=== PATIENT | female | born 1955 | race Caucasian/White ===

== ENCOUNTER 2021-07-28 09:44 | Outpatient (CLI) | payer BC, SELFPAY ==
--- NOTE | 2021-07-28 09:56 | MM_ITS ---
WS: [id number] BILATERAL SCREENING DIGITAL BREAST TOMOSYNTHESIS MAMMOGRAM WITH CAD HISTORY: SCREENING COMPARISON: 06/12/2016 and 06/04/2016 Bilateral CC and MLO views with tomosynthesis and synthetic mammography submitted. Computer aided det ection analyzed. Breast composition: There are scattered areas of fibroglandular density. No suspicious masses, microc alcifications or architectural distortion. Well-circumscribed nodule RIGHT breast near 9:00 measures 11 x 12 mm. There are now central coarse calcifications. Consistent with a degenerating fibroadenoma. Benign calcifications in the LEFT breast. MM/[place] [id number] IMPRESSION: BI-RADS: 2-Benign FOLLOW UP: 1 Year Follow-up
== END 2021-07-28 09:45 | disposition home or self-care (01) ==
PROVIDERS: Visit Provider Family Medicine
DX: Z12.31 Encounter for screening mammogram for malignant neoplasm of breast (principal)
CPT/HCPCS: 77063; 77067

== ENCOUNTER 2021-10-17 10:18 | Outpatient (CLI) | payer BC, SELFPAY ==
--- NOTE | 2021-10-17 10:15 | USCV_ITS ---
Nathaly Rodgers Age: 66 Gender: F : 1955 Exam Date: 10/17/2021 10:32 Ordering Phys: Chi Main M.D ([email or web address]) Technologist: Carlos Hernandez [place] [facility] [place]: occlusion and stenosis of bilateral carotid arteries Risk Factors: Previous Vascular Surgery: Left subclavian stent Right Brachial BP: / Left Brachial BP: / Right Left Velocity (cm/s) Spectral Plaque Velocity (cm/s) Spectral Plaque Syst/Diast Broadening Syst/Diast Broadening 102.50/23.20 Prox CCA 69.20 / 23.10 53.80/ 16.20 Mid CCA 76.90 / 22.20 56.50/ 15.10 Distal CCA 70.10 / 23.90 86.20/ 24.90 Prox ICA 100.00/ 21.40 108.00/34.20 Mid ICA 95.70 / 28.20 64.50/ 19.40 Distal ICA 94.00 / 29.90 106.40 ECA 88.00 2.01 ICA/CCA 1.24 Antegrade Vertebral Antegrade 56.70/ 19.40 cm/s 59.00/ 10.30 cm/s Tri Subclavian Bi 109.4 96.40 0 CONCLUSIONS Right ICA stenosis <50%. Mild atheromatous plaque right carotid bulb/ICA. Left ICA stenosis <50%. Mild atheromatous plaque left carotid bulb/ICA. Normal antegrade Doppler flow noted in the right vertebral artery. Normal antegrade Doppler flow noted in the left vertebral artery. Left subclavian stent appears patent. Jose Levin MD (Electronically Signed) Final Date: 19 October 2021 15:44 S
== END 2021-10-17 10:19 | disposition home or self-care (01) ==
PROVIDERS: PCP Family Medicine; Visit Provider Internal Medicine
DX: I65.23 Occlusion and stenosis of bilateral carotid arteries (principal)
CPT/HCPCS: 93880

== ENCOUNTER → 2022-01-28 11:20 | Outpatient (BNVA) | payer MEDICARE, SELFPAY | PROVIDERS: PCP Family Medicine; Visit Provider Family Medicine | DX: R73.09 Other abnormal glucose (principal); Z51.81 Encounter for therapeutic drug level monitoring | CPT/HCPCS: 80053; 83036; 85025 ==

== ENCOUNTER → 2022-03-25 12:06 | Outpatient (BNVA) | payer MEDICARE, SELFPAY | PROVIDERS: PCP Family Medicine; Visit Provider Family Medicine | DX: R74.8 Abnormal levels of other serum enzymes (principal) | CPT/HCPCS: 86705; 86706; 86709; 86803; 87340 ==

== ENCOUNTER → 2022-06-01 13:08 | Outpatient (BNVA) | payer MEDICARE, SELFPAY | PROVIDERS: PCP Family Medicine; Visit Provider Internal Medicine | DX: I73.9 Peripheral vascular disease, unspecified (principal); I10 Essential (primary) hypertension; E78.00 Pure hypercholesterolemia, unspecified; Z87.891 Personal history of nicotine dependence; Z79.82 Long term (current) use of aspirin | CPT/HCPCS: 99214 ==

== ENCOUNTER 2022-06-26 12:04 | Emergency (ER) | payer MEDICARE, SELFPAY ==
[2022-06-26 12:27] VITALS: BP 184/92; PULSE 74; RESP 16; TEMP 36.2; O2SAT 94; BMI 32.1
--- NOTE | 2022-06-26 12:32 | XR_ITS ---
WS: [id number] EXAMINATION: XR knee RT 3V* [id number] REASON FOR EXAM: pain COMPARISON: None available. ORDER DATE: 06/26/2022 12:46 PM FINDINGS: There are marginal osteophytes associated with the tibial spines, patella and other articular margins with medial and patellofemoral compartment narrowing. There is no sign of any acute fracture or disl ocation. XR/XR knee RT 3V* [id number] IMPRESSION: MEDIAL AND PATELLOFEMORAL COMPARTMENT NARROWING WITH OSTEOARTHRITIC CHANGES.
--- NOTE | 2022-06-26 12:42 | ED_ITS ---
HPI - Fall General: Chief Complaint: Fall Stated Complaint: fall Time Seen by Provider: 06/26/22 12:26 Source: patient Mode of arrival: ambulatory History of Present Illness: 67-year-old female presents emergency complaining of falling about 3 hours ago she stumbled on a sidewalk on a transition point from the concrete to the asphalt of the parking lot she fell she complaining of right knee pain and abrasion the nurses note had made a comment about she would hurt her right ankle when I went and seen the patient she told me she had no problem with the ankle but she is had right knee pain as well as right rib pain. Painful to take a deep breath. She not strike her head she did not lose consciousness. Denies any other injuries. MD complaint: fall Onset (ago): hour(s) (3) Fall from: standing Fall witnessed: yes, by family Place fall occurred: home Loss of consciousness: None Prolonged down time: no Symptoms prior to fall: none Context: tripped/slipped Location of injury: chest Location of injury - extremities: Right: knee Associated symptoms-after fall: Denies abdominal pain, chest pain, confusion, difficulty walking, headache(s), hematuria, lightheadedness, neck pain, numbness, short of breath, vertigo or weakness Review of Systems Const: Denies: fever(s), chills, body aches, change in appetite, fatigue or malaise ENMT: Denies: throat pain, ear or mastoid pain, nasal discharge or nasal congestion Card: Denies: chest pain or lightheadedness Resp: Denies: dyspnea, productive cough or non-productive cough GI: Denies: abdominal pain : Denies: hematuria Musc: Denies: neck pain Skin/Breast: Denies: rash or pruritus Neuro: Denies: headache(s), difficulty walking, vertigo or confusion PFSH ED PFSH: Medical History HTN (hypertension) Hypercholesterolemia Family History Mother H/O heart bypass surgery PAD (peripheral artery disease) Social History Smoking and tobacco status: former smoker Quit status (tobacco): has quit using tobacco Year quit tobacco: Mar 2022 Alcohol intake: never Physical Exam Const: GENERAL APPEARANCE: cooperative and comfortable ORIENTATION/CONSCIOUSNESS: Yes awake, Yes oriented to person, Yes oriented to place and Yes oriented to time HENMT: COMMON NORMALS: normocephalic, atraumatic and hearing grossly normal bilaterally HEAD & SCALP: normocephalic and atraumatic Resp: COMMON NORMALS: normal respiratory effort, No retractions, No use of accessory muscles and clear to auscultation bilaterally AUSCULTATION: clear to auscultation bilaterally Cardio: COMMON NORMALS: regular rate, regular rhythm and No murmurs present (Cardio) RATE: regular rate RHYTHM: regular rhythm GI: COMMON NORMALS: Soft to palpation and No hepatosplenomegaly present AUSCULTATION: Yes normoactive bowel sounds PALPATION: Yes Soft to palpation, No Tenderness to palpation present (GI), No Guarding due to palpation present (GI) and Yes No hepatosplenomegaly present Extremity: COMMON NORMALS: normal to inspection, capillary refill normal, no clubbing, cyanosis or edema, no calf tenderness and no pedal edema Neuro: SENSORIUM/ORIENTATION: Yes oriented to person, Yes oriented to place and Yes oriented to time Skin: COMMON NORMALS: no rashes or lesions noted GENERAL SKIN EXAM: no rashes or lesions noted OTHER: Superficial abrasion right knee anterior lateral Course Vital Signs: Vital signs: Vital Signs Temperature 97.1 F L 06/26/22 12:27 Pulse Rate 64 06/26/22 15:01 Respiratory Rate 16 06/26/22 12:27 Blood Pressure 184/92 06/26/22 12:27 Pulse Oximetry 93 06/26/22 15:01 Oxygen Delivery Me thod Room Air 06/26/22 12:27 MDM - Fall Medical Decision Making Imaging shows no acute fractures on the knee or ribs. Discharge home with anti- inflammatories ice. Recommend nonweightbearing until knee is improving if it does not improve follow-up with primary care for advanced imaging. Medical Records I reviewed the patient's medical records. Lab Data I reviewed the patient's lab results. Radiology Impressions Knee X-Ray 06/26/22 12:32 IMPRESSION: MEDIAL AND PATELLOFEMORAL COMPARTMENT NARROWING WITH OSTEOARTHRITIC CHANGES. Ribs X-Ray 06/26/22 12:42 IMPRESSION: 1. No rib fracture identified. Follow-up as clinically indicated. 2. No acute findings in the chest. Discharge Plan Discharge Patient Disposition: Home Clinical Impression: Fall, Acute knee pain Condition: Stable Prescriptions: New diclofenac sodium 75 mg tablet,delayed release (DR/EC) 75 mg PO Q12H PRN (Reason: pain) Qty: 20 0RF No Action albuterol sulfate [ProAir HFA] 90 mcg/actuation HFA aerosol inhaler 2 puff inhalation Q6H PRN (Reason: Shortness Of Breath) Aspir-81 81 mg Tablet,Delayed Release (Dr/Ec) 81 mg PO QAM Tylenol Ex Str Rapid Release 500 mg Tablet 500 mg PO Q6H PRN (Reason: Pain) vitamin B complex Tablet 1 tab PO QAM atorvastatin 20 mg tablet 20 mg PO BEDTIME hydrochlorothiazide 25 mg tablet 25 mg PO QAM Discharge Orders: Discharge ED (Routine); Ordered 06/26/22 Ordered By: Rayshawn Quick Referrals: Umer Burr MD [Primary Care Provider] - Discharge Diet: Usual diet Discharge Activity: Resume usual activity Patient Instructions: Opioid Safety, Pain Management Activity Restrictions/Additional Instructions: You are seen after a fall today. Your x-rays were negative of the ribs and of the right knee. You were given an updated tetanus for the abrasion on your right knee. Recommend applying [id number] topical antibiotic ointment to that use of diclofenac as needed. Coding Level of Care Code ED Forensic Dna Analyst for Pramod Myers
--- NOTE | 2022-06-26 12:42 | XRR_ITS ---
PROCEDURE INFORMATION: Exam: XR Right Ribs with PA Chest Exam date and time: 06/26/2022 12:55 PM Age: 67 years old Clinical indication: Injury or trauma; Fall; Rib area; Blunt trauma (contusions or hematomas); Additional info: Fall, R rib pain TECHNIQUE: Imaging protocol: Radiologic exam of the right ribs with PA chest. Views: 3 views COMPARISON: No relevant prior studies available. FINDINGS: Lungs: Unremarkable. No consolidation. 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 Minimal left basilar scarring or atelectasis. Pleural spaces: Unremarkable. No pleural effusion. No pneumothorax. Heart/Mediastinum: Unremarkable. No cardiomegaly. Bones/joints: No rib fracture seen, and particularly no displaced rib fracture identified. Mild spondylotic change thoracic spine. XR/XR ribs RT mn 3V w CXR1V [id number] IMPRESSION: 1. No rib fracture identified. Follow-up as clinically indicated. 2. No acute findings in the chest.
[2022-06-26] MEDS: tetanus-dipt-pertussis 0.5 mL SDV IM (13:22)
[2022-06-26 15:01] VITALS: PULSE 64; O2SAT 93
== END 2022-06-26 15:05 | disposition home or self-care (01) ==
PROVIDERS: Emergency Provider Family Medicine; PCP Family Medicine
DX: M25.561 Pain in right knee (principal); Z79.82 Long term (current) use of aspirin; I10 Essential (primary) hypertension; Z87.891 Personal history of nicotine dependence; Z23 Encounter for immunization; S80.211A Abrasion, right knee, initial encounter; W01.0XXA Fall on same level from slipping, tripping and stumbling without subsequent striking against object, initial encounter
CPT/HCPCS: 71101; 73562; 90471; 90715; 99283

== ENCOUNTER 2022-08-25 13:15 | Outpatient (CLI) | payer MEDICARE, SELFPAY ==
--- NOTE | 2022-08-25 13:27 | MM_ITS ---
WS: [id number] BILATERAL 3D TOMOSYNTHESIS DIGITAL SCREENING MAMMOGRAPHY WITH CAD CLINICAL INFORMATION: SCREENING HISTORY: Screening mammogram. No current complaints. COMPARISON: 2021 TECHNIQUE: Bilateral CC and MLO views. FINDINGS: Scattered fibroglandular densities bilaterally. No suspicious focal mass, asymmetry, calcifications, or architectural distortion. No evidence of malignancy. Stable ovoid nodule RIGHT breast with coarse calcifications likely degenerating fibroadenoma measuring 11 mm is unchanged. A few incidental puncta te calcifications. MM/[place] [id number] IMPRESSION: BI-RADS: 2-Benign FOLLOW UP: 1 Year Follow-up Recommend return to annual screening mammography.
== END 2022-08-25 13:16 | disposition home or self-care (01) ==
LOC: RAD 13:19
PROVIDERS: PCP Family Medicine; Visit Provider Family Medicine
DX: Z12.31 Encounter for screening mammogram for malignant neoplasm of breast (principal)
CPT/HCPCS: 77063; 77067

== ENCOUNTER → 2023-02-01 15:55 | Outpatient (BNVA) | payer MEDICARE, SELFPAY | PROVIDERS: PCP Family Medicine; Visit Provider Family Medicine | DX: Z51.81 Encounter for therapeutic drug level monitoring (principal); I10 Essential (primary) hypertension; R73.09 Other abnormal glucose; Z13.220 Encounter for screening for lipoid disorders | CPT/HCPCS: 80053; 80061; 83036; 85025 ==

== ENCOUNTER 2023-02-25 11:02 | Outpatient (CLI) | payer MEDICARE, SELFPAY ==
--- NOTE | 2023-02-25 11:15 | US_ITS ---
WS: [id number] Exam: US abdomen limited [id number] Date/Time of Exam: 02/25/2023 11:09 AM Reason For Exam: Elevated transaminases - RUQ US The liver and gallbladder are unremarkable. The common bile duct is not dilated and measures 3.9 mm i n greatest diameter. No intrahepatic ductal dilatation. The RIGHT kidney appears normal and measures 10 x 4.4 x 4.8 cm. The liver measures 13.25 cm in greatest dimension. The IVC is patent with phasic f low. The abdominal aorta is normal in caliber. The pancreas is unremarkable in appearance. IMPRESSION: 1. Unremarkable RIGHT abdominal sonogram.
== END 2023-02-25 11:03 | disposition home or self-care (01) ==
LOC: RAD 11:02
PROVIDERS: PCP Family Medicine; Visit Provider Family Medicine
DX: R74.01 Elevation of levels of liver transaminase levels (principal)
CPT/HCPCS: 76705

== ENCOUNTER → 2023-03-01 13:47 | Outpatient (BNVA) | payer MEDICARE, SELFPAY | PROVIDERS: PCP Family Medicine; Visit Provider Internal Medicine | DX: I73.9 Peripheral vascular disease, unspecified (principal); I10 Essential (primary) hypertension; E78.00 Pure hypercholesterolemia, unspecified; F17.210 Nicotine dependence, cigarettes, uncomplicated | CPT/HCPCS: 99214 ==

== ENCOUNTER 2023-03-11 12:56 | Outpatient (CLI) | payer MEDICARE, SELFPAY ==
--- NOTE | 2023-03-11 13:15 | USCV_ITS ---
Nathaly Rodgers Age: 68 Gender: F : 1955 Exam Date: 03/11/2023 13:07 Ordering Phys: Chi Main M.D ([email or web address]) Technologist: LISETTE Exam Location[place] [facility] [place] Indication: Stenosis Risk Factors: Previous Vascular Surgery: Right Brachial BP: / Left Brachial BP: / Right Left Velocity (cm/s) Spectral Plaque Velocity (cm/s) Spectral Plaque Syst/Diast Broadening Syst/Diast Broadening 74.60/ 14.00 Prox CCA 70.70 / 17.90 66.40/ 21.70 Mid CCA 80.00 / 24.90 56.90/ 14.90 Distal CCA 63.00 / 21.30 75.40/ 19.40 Prox ICA 99.90 / 22.90 56.80/ 16.00 Mid ICA 111.30/ 39.50 75.80/ 26.00 Distal ICA 84.30 / 32.20 80.60 ECA 114.40 1.02 ICA/CCA 1.39 Antegrade Vertebral Antegrade 46.60/ 14.80 cm/s 49.80/ 16.10 cm/s Tri Subclavian Tri 118.0 148.8 0 0 CONCLUSIONS Right ICA stenosis <50%. Mild atheromatous plaque right carotid bulb/ICA. Left ICA stenosis <50%. Mild atheromatous plaque left carotid bulb/ICA. Normal antegrade Doppler flow noted in the right vertebral artery. Normal antegrade Doppler flow noted in the left vertebral artery. Jose Levin MD (Electronically Signed) Final Date: 11 March 2023 14:57 S
== END 2023-03-11 12:57 | disposition home or self-care (01) ==
LOC: RAD 12:57
PROVIDERS: PCP Family Medicine; Visit Provider Internal Medicine
DX: I65.23 Occlusion and stenosis of bilateral carotid arteries (principal)
CPT/HCPCS: 93880

== ENCOUNTER 2023-09-30 08:39 | Outpatient (CLI) | payer MEDICARE, SELFPAY ==
--- NOTE | 2023-09-30 08:49 | XRR_ITS ---
PROCEDURE INFORMATION: Exam: XR Chest Exam date and time: 09/30/2023 8:52 AM Age: 68 years old Clinical indication: Condition or disease; Lung condition and disease; Copd; Complications not specified; Cough; Additional info: Cough, copd TECHNIQUE: Imaging protocol: Radiologic exam of the chest. Views: 2 views. Total images: 184 COMPARISON: CR XR ribs RT mn 3V w CXR1V [id number] 06/26/2022 12:55 PM FINDINGS: Lungs: Incidental azygos fissure of the right upper lobe is present. Trace atelectasis or scar noted in the left lung base. Pleural spaces: Unremarkable. No pleural effusion. No pneumothorax. Heart/Mediastinum: Unremarkable. No cardiomegaly. Vasculature: Moderate atherosclerotic disease burden is evident. Vascular stent in the left superior mediastinum unchanged. Bones/joints: Unremarkable. XR/XR chest 2V* [id number] IMPRESSION: Trace atelectasis or scar noted in the left lung base.
== END 2023-09-30 08:40 | disposition home or self-care (01) ==
PROVIDERS: PCP Family Medicine; Visit Provider Family Medicine
DX: J44.1 Chronic obstructive pulmonary disease with (acute) exacerbation (principal); Q33.1 Accessory lobe of lung
CPT/HCPCS: 71046; 80053; 83036; 85025

== ENCOUNTER → 2023-11-29 13:46 | Outpatient (BNVA) | payer MEDICARE, SELFPAY | PROVIDERS: PCP Family Medicine; Visit Provider Internal Medicine | DX: I73.9 Peripheral vascular disease, unspecified (principal); I10 Essential (primary) hypertension; E78.00 Pure hypercholesterolemia, unspecified; F17.200 Nicotine dependence, unspecified, uncomplicated | CPT/HCPCS: 99214 ==

== ENCOUNTER 2023-12-28 11:22 | Outpatient (CLI) | payer MEDICARE, SELFPAY ==
--- NOTE | 2023-12-28 11:30 | MM_ITS ---
WS: [id number] BILATERAL 3D TOMOSYNTHESIS DIGITAL SCREENING MAMMOGRAPHY WITH CAD CLINICAL INFORMATION: Screening HISTORY: Screening mammogram. No current complaints. COMPARISON: 2022 TECHNIQUE: Bilateral CC and MLO views. FINDINGS: Scattered fibroglandular densities bilaterally. No suspicious focal mass, asymmetry, calcifications, or architectural distortion. No evidence of malignancy. Dystrophic calcifications RIGHT breast stable . A few incidental punctate calcifications. MM/MM scr tomosynthesis [id number] IMPRESSION: DENSITY: There are scattered areas of fibroglandular density. BI-RADS: 2 - Benign. FOLLOW UP: 1 Year Follow-up Recommend return to annual screening mammography.
== END 2023-12-28 11:23 | disposition home or self-care (01) ==
LOC: RAD 11:22
PROVIDERS: PCP Family Medicine; Visit Provider Family Medicine
DX: Z12.31 Encounter for screening mammogram for malignant neoplasm of breast (principal); R92.323 Mammographic fibroglandular density, bilateral breasts; R92.1 Mammographic calcification found on diagnostic imaging of breast
CPT/HCPCS: 77063; 77067

== ENCOUNTER 2024-12-28 14:02 | Outpatient (CLI) | payer MEDICARE, SELFPAY ==
--- NOTE | 2024-12-28 14:15 | MM_ITS ---
WS: [id number] BILATERAL SCREENING DIGITAL TOMOSYNTHESIS MAMMOGRAM WITH CAD HISTORY: ANNUAL SCREEN COMPARISON: 08/25/2022, 07/28/2021, 12/28/2023 Bilateral CC and MLO views with tomosynthesis and synthetic mammography submitted. Computer aided detection analyzed. Breast composition: There are scattered areas of fibroglandular density. No suspicious masses, microcalcifications or architectural distortion. Coarse calcifications in a degenerating fibroadenoma RIGHT breast. Coarse benign calcifications in the LEFT breast. MM/MM scr BI tomosynthesis [id number] IMPRESSION: BI-RADS: 2 - Benign. FOLLOW UP: 1 Year Follow-up
== END 2024-12-28 14:03 | disposition home or self-care (01) ==
LOC: RAD 14:03
PROVIDERS: PCP Family Medicine; Visit Provider Family Medicine
DX: I73.9 Peripheral vascular disease, unspecified (principal); I10 Essential (primary) hypertension; E78.5 Hyperlipidemia, unspecified; F17.210 Nicotine dependence, cigarettes, uncomplicated; Z12.31 Encounter for screening mammogram for malignant neoplasm of breast; R92.323 Mammographic fibroglandular density, bilateral breasts
CPT/HCPCS: 77063; 77067; 99214